=== PATIENT | male | born 1980 | race Caucasian/White ===

== ENCOUNTER 2025-04-23 02:06 | Emergency (ER) | payer BC, SELFPAY ==
[2025-04-23 02:08] VITALS: BMI 23.7
[2025-04-23 02:11] VITALS: BP 134/85; PULSE 64; RESP 19; TEMP 36.6; O2SAT 98
--- NOTE | 2025-04-23 02:18 | XR_ITS ---
Examination: CT abdomen and pelvis without contrast. Coronal 3-D reconstructions. Sagittal 2-D reconstructions. Date and time of exam: April 23, 2025, 0310 hours, comparison March 30, 2017 INDICATIONS: Right-sided flank pain beginning 2 hours ago, history of kidney stones CTDI: vol (mGy): 6.38 DLP: (mGycm): 378 Technique: Axial images of the abdomen have been obtained, 3 mm slice thickness Intravenous contrast material has not been administered. Low dose protocols were performed. One or more of the following dose reduction techniques were used; automated exposure control, adjustment of the mA and/or KV according to patient size, use of iterative reconstruction technique. Findings: No focal liver or splenic lesions No gallstones No pancreatic mass 20 mm indeterminate right adrenal nodule Mild right hydronephrosis, 4 mm calculus proximal right ureter Aorta normal size Normal appendix Contracted urinary bladder, no bladder mass or bladder calculi IMPRESSION: Mild right hydronephrosis, 4 mm proximal right ureteral calculus Indeterminate 20 mm right adrenal nodule, consider elective MRI abdomen adrenal glands follow-up pre and postcontrast
--- NOTE | 2025-04-23 02:18 | PD.EDRME ---
Rapid Medical Screening Exam RME Arrival date/time: 04/23/25 02:06 45M with history of kidney stones presents to ED with sudden R flank pain and N/V. Chief Complaint: Abdominal Pain Vital signs: Vital Signs Temperature 97.9 F 04/23/25 02:11 Pulse Rate 64 04/23/25 02:11 Respiratory Rate 19 04/23/25 02:11 Blood Pressure 134/85 H 04/23/25 02:11 Pulse Oximetry (%) 98 04/23/25 02:11 Exam: CVA tenderness Clinical Impression: kidney stone vs pyelo/UTI vs appy vs torsion vs drug use
[2025-04-23] MEDS: KETOROLAC INJ 30 MG/ML VIAL IVP ×2 (02:40→04:56)
[2025-04-23] MEDS: ONDANSETRON INJ 2 MG/ML INJ 2 ML 4 MG IVP (02:40)
[2025-04-23] MEDS: SODIUM CHLORIDE 0.9% 1000 ML 1,000 ML 999 ML IV (02:41)
--- NOTE | 2025-04-23 03:00 | EDNOTE_ITS ---
ED Abdominal Pain RME/HPI General Chief Complaint: Abdominal Pain Stated complaint: RIGHT FLANK PAIN Time seen by provider: 04/23/25 02:43 Arrival date/time: 04/23/25 02:06 RME / HPI RME / HPI narrative: 04/23/25 02:06 CC: Right back pain, kidney stones before Patient is a 45-year-old male with a past medical history of previous kidney stones (previous 5 mm) who presented to the emergency room via private vehicle with chief complain of right flank that woke him up from sleep at 11:00 PM on 04/22/2025. Previous history of stones that was about 5 mm in diameter which passed on its own previously. Some nausea and vomiting at home. Denied any blood in emesis. Denied hematuria. Denied hematochezia. No sick contacts. No diarrhea. No fever or chills. at home. Exam: CVA tenderness Impression: kidney stone vs pyelo/UTI vs appy vs torsion vs drug use Related Data Previous Rx's ?Medication ?Instructions ?Recorded ibuprofen 600 mg tablet 600 mg PO Q8H PRN fever or p ain 10 04/23/25 days #30 tabs Allergies Allergy/AdvReac Type Severity Reaction Status Date / Time No Known Allergies Allergy Verified 04/23/25 02:07 Review of Systems Review of Systems Narrative Review of Systems: General appearance: NO weight change, NO fatigue, NO weakness, NO fever, NO chills, NO night sweats, No cough Skin: NO rash, NO itching, NO sores, NO moles HEENT: NO Trauma, NO nausea, NO vomiting, NO visual changes, NO blurry vision, NO double vision, NO tinnitus, NO vertigo, NO ear discharge, NO rhinorrhea, NO stuffiness, NO sneezing, NO allergy, NO epistaxis. NO Hoarseness, NO sore throat, NO swollen neck. Cardiac: NO Palpitations, NO dyspnea on exertion, NO orthopnea, NO paroxysmal nocturnal dyspnea, NO edema Respiratory: NO Shortness of Breath, NO Wheezing, NO Cough, NO Sputum, NO hemoptysis GI:NO appetite, NO nausea, NO vomiting, NO dysphagia, NO changes in bowel frequency, NO stool color, NO diarrhea, NO constipation, NO hemetemesis, NO hemorrhoids, NO melena, NO hematechezia, NO abdominal pain, NO jaundice Renal: NO frequency, NO hesitancy, NO urgency, NO hematuria, NO nocturia, NO incontinence, Flank Pain MSK: NO muscle weakness, NO gout, NO arthritis, NO muscle stiffness Neuro: NO headaches, NO tremors, NO weakness, NO paralysis, NO seizures, NO loss of consciousness, NO numbness. Hem: NO anemia, NO easy bruising/bleeding, NO petechiae, NO purpura Endo: NO heat/cold intolerance, NO excessive sweating, NO polyuria, NO polydipsia, NO polyphagia, NO thyroid problems, NO diabetes Pysch: NO mood, NO anxiety, NO depression ED Exam Narrative Physical exam: General Appearance: Alert & Oriented X3, well-nourished male who is lying in bed in mild distress, secondary to CVA tenderness. HEENT: Skull symmetrical and atraumatic. Conjunctivae pin and moist. Pupils equal, round, reactive to light and accommodation (PERRL). External ear without lesion or discharge. Straight, nares patient, mucosa pink, no discharge. Cardio: Normal Rate and Rhythm with S1 and S2 heart sounds. No murmurs or extra heart sounds auscultated. No bruits on carotid auscultation. No peripheral edema or cyanosis. Lungs: Symmetric with good expansion. Chest and back non-tender. Breath sounds vesicular without crackles, wheezing or rhonchi Abdomen: no abdominal tenderness, Non-distended, Normal Reactive Bowel Sounds, tenderness to flank on palpation Neuro: Alert, cooperative, oriented to person, place, and time. Speech clear. CN grossly intact. Upper motor strength 5/5 and Lower motor strength 5/5. Sensation intact. Course Quality Measures none Orders Category Date Time Status Insert IV NOW Care 04/23/25 02:[address] abdomen pelvis wo con Stat Exams 04/23/25 02:18 Taken Alcohol, Blood Medical Stat Lab 04/23/25 02:50 Completed CBC Stat Lab 04/23/25 02:50 Completed CMP [Comprehensive Metabolic Panel] Stat Lab 04/23/25 02:50 Completed Drug Screen,Urine Stat Lab 04/23/25 03:45 Completed Lipase Stat Lab 04/23/25 02:50 Completed Urinalysis, C/S if Indicated Stat Lab 04/23/25 03:45 Completed Ketorolac Inj [Toradol Inj] Med 04/23/25 02:18 Discontinued 30 mg IVP X1 ONE Ketorolac Inj [Toradol Inj] Med 04/23/25 04:44 Discontinued 30 mg IVP X1 ONE Morphine* Inj Med 04/23/25 04:01 Discontinued 2 mg IVP X1 ONE Morphine* Inj Med 04/23/25 02:58 Discontinued 2 mg IVP X1 PRN Ondansetron Inj [Zofran Inj] Med 04/23/25 02:18 Discontinued 4 mg IVP X1 ONE Sodium Chloride 0.9% 1000 ml [Ns] 1,000 ml Med 04/23/25 02:18 Discontinued IV 999 mls/hr Tamsulosin HCl [Flomax] Med 04/23/25 04:02 Discontinued 0.4 mg PO X1 ONE Vital Signs Vital signs: Vital Signs Temperature 97.9 F 04/23/25 02:11 Pulse Rate 64 04/23/25 02:11 Respiratory Rate 19 04/23/25 02:11 Blood Pressure 134/85 H 04/23/25 02:11 Pulse Oximetry (%) 98 04/23/25 02:11 Abdominal Pain MDM Patient data External records reviewed:: [facility] previous records Clinical information provided by:: patient Social determinants that could affect healthcare access:: none Patient has the following chronic illnesses:: history of kidney stones How is presenting disease/condition affected by chronic disease/condition?: no chronic disease Evaluation data The following diagnostics were reviewed and interpreted by me:: lab results and radiology exam(s) Lab and/or radiology exams considered but not ordered:: None Interpretation Summary: Patient is a 45 year old male with a past medical history of previous calculi who presented with flank pain. No leukocytosis. CMP within trevin limits. UA negative for esterase and WBCs in urine. Utox positive THC. CT abdomen/Pelvis-3 mm obstructing calculus in the right proximal ureter causing mild hydroureteronephrosis. - The patient's plan was discussed with attending Dr. Edgardo Cordova MD PGY2 Internal Medicine Medications / Prescriptions Medications or Prescriptions considered but not ordered:: None Medication administrations:: Medication Administration History Discontinued Medications Sodium Chloride (Ns) 1,000 mls @ 999 mls/hr IV .Q1H1M ONE Stop: 04/23/25 03:18 Last Infusion: 04/23/25 03:52 Dose: Infused Documented By: [email or web address] Admin: 04/23/25 02:41 Dose: 999 mls/hr Documented By: HALINA Ketorolac Tromethamine (Ketorolac Inj 30 Mg/Ml Vial) 30 mg IVP X1 ONE Stop: 04/23/25 02:19 Last Admin: 04/23/25 02:40 Dose: 30 mg Documented By: HALINA Ketorolac Tromethamine (Ketorolac Inj 30 Mg/Ml Vial) 30 mg IVP X1 ONE Stop: 04/23/25 04:45 Last Admin: 04/23/25 04:56 Dose: 30 mg Documented By: HALINA Morphine Sulfate (Morphine Sulf Inj 4 Mg/Ml Vial) 2 mg IVP X1 PRN PRN Reason: Pain 7-10 Stop: 04/28/25 02:57 Morphine Sulfate (Morphine Sulf Inj 4 Mg/Ml Vial) 2 mg IVP X1 ONE Stop: 04/23/25 04:02 Last Admin: 04/23/25 04:08 Dose: 2 mg Documented By: HAILNA Ondansetron HCl (Ondansetron Inj 2 Mg/Ml Inj 2 Ml) 4 mg IVP X1 ONE; Protocol Stop: 04/23/25 02:19 Last Admin: 04/23/25 02:40 Dose: 4 mg Documented By: HALINA Tamsulosin HCl (Tamsulosin Hcl 0.4 Mg Capsule) 0.4 mg PO X1 ONE Stop: 04/23/25 04:03 Last Admin: 04/23/25 04:08 Dose: 0.4 mg Documented By: HALINA same as above Consultations Consultation(s) initiated? (list below): No Diagnosis Differential diagnosis abdominal pain: calculus of kidney, constipation and diverticulitis Most likely diagnosis given after review of the tests above:: Patient is a 45 year old male with a past medical history of previous calculi who presented with flank pain. No leukocytosis. CMP within trevin limits. UA negative for esterase and WBCs in urine. Utox positive THC. CT abdomen/Pelvis-3 mm obstructing calculus in the right proximal ureter causing mild hydroureteronephrosis, thus flank pain secondary to right calculi. - The patient's plan was discussed with attending Dr. Edgardo Cordova MD PGY2 Internal Medicine Admission Indicated Admission indicated?: not indicated Admission Request Was there a request for admission?: No Disposition Plan Disposition Plan: Discharge Discharge Attestation Discharge Attestation: The patient and all family members were given an opportunity to ask questions and understood the discharge instructions. Discharge instructions specifically effects, indications for sooner follow up or return to the emergency department, and the expected course of current diagnosis. Patient condition: Stable Discharge Plan Plan Patient Disposition: HOME (Self Care) Patient condition on transfer: Stable Health Concerns: Instructions: -Based on your images you have a stone in your right kidney. -Please stay hydrated to help your kidney stone pass. -Please take Ibuprofen 600 mg every 8 hours as needed for pain. Do not take more than 3,000 mg in a 24 hour period. -Please follow up with your primary care provider within one week of discharge -If your symptoms worsen,please seek immediate medical attention and return to your nearest emergency room -If you do not have a primary care provider, [facility] [address] [place] [address], Phone Prescriptions/Referrals Prescriptions/Med Rec: New ibuprofen 600 mg tablet 600 mg PO Q8H PRN (Reason: fever or pain) 10 Days Qty: 30 0RF Referrals: Ping Hanley MD [Primary Care Provider, Family Practice] - In 1 week Problem List Clinical Impression: Kidney calculi Patient/Caregiver Discharge Instructions Education Materials: ED Kidney Stone Undescended No ... Print Language: Faroese Stand Alone Forms: Brittnee Award Info., Patient Portal Info Letter
[2025-04-23 03:03] LABS: Basophils # (Auto) 0.1 Thou/mm3 (0.0-0.2); Basophils % (Auto) 1 % (0-2.5); Eosinophils # (Auto) 0.1 Thou/mm3 (0.0-0.5); Eosinophils % (Auto) 2 % (0-10); Hematocrit 45.5 % (41.0-53.0); Hemoglobin 15.7 g/dL (13.5-16.0); Immature Granulocytes Auto 0.02 Thou/mm3 (0.00-0.00); Lymphocytes # (Auto) 2.5 Thou/mm3 (1.0-4.8); Lymphocytes % (Auto) 31 % (10-50); Mean Corpuscular HGB Conc 34.5 g/dl (31.0-37.0); Mean Corpuscular Hemoglobin 28.8 pg (25.0-35.0); Mean Corpuscular Volume 84 fL (80-100); Monocytes # (Auto) 0.8 Thou/mm3 (0.0-0.8); Monocytes % (Auto) 10 % (0-12); Neutrophils # (Auto) 4.5 Thou/mm3 (1.8-7.7); Neutrophils % (Auto) 57 % (37-80); Nucleated Red Blood Cell # 0.00 Thou/mm3 (0.00-0.00); Nucleated Red Blood Cell % 0 /100 WBC (0); Platelet Count 366 Thou/mm3 (140-440); RDW Standard Deviation 39.1 fL (35.1-43.9); Red Blood Count 5.45 Miln/mm3 (4.50-5.90); White Blood Count 8.1 Thou/mm3 (3.8-10.6)
[2025-04-23 03:32] LABS: Alanine Aminotransferase 16 U/L (10-49); Albumin, Serum 4.5 gm/dL (3.5-5.0); Albumin/Globulin Ratio 1.7 (1.2-2.2); Alcohol, Blood Medical < 3.0 mg/dL (0-10.0); Alkaline Phosphatase 76 U/L (46-116); Anion Gap 9 (7-16); Aspartate Amino Transferase 17 U/L (0-34); BUN/Creatinine Ratio 10 Ratio (12-20); Bilirubin,Total 0.5 mg/dL (0.3-1.2); Blood Urea Nitrogen 10 mg/dL (9-23); Calcium 9.9 mg/dL (8.3-10.6); Calcium (Corrected) 9.9 mg/dL (8.5-10.1); Carbon Dioxide 27.9 mMol/L (20.0-31.0); Chloride 105 mMol/L (98-107); Creatinine (Component) 1.0 mg/dL (0.6-1.3); Estimated Creatinine Clearance 103.5 mL/min (>60); Globulin 2.7 gm/dL (2.3-3.5); Glucose 99 mg/dL (74-106); Lipase 49 U/L (12-53); Osmolality,Calculated 282 (275-295); Potassium 3.9 mMol/L (3.4-5.1); Sodium 142 mMol/L (136-145); Total Protein 7.2 gm/dL (5.7-8.2); eGFR > 60 See Note
--- NOTE | 2025-04-23 03:52 | PRELIM_ITS ---
CT scan of the abdomen and pelvis without intravenous contrast (axial sections with sagittal and coronal reformats) April 23, 2025 0310 hours Clinical History: R Flank pain Comparison: No prior study is available for comparison. Findings: The lung bases are clear. There is mild a thickening of the stomach. There is a 3 mm obstructing calculus in the right proximal ureter causing mild hydroureteronephrosis and periureteric/perinephric fat stranding. There is a hypodense nodule (HU 22) in the right adrenal, measuring 2 cm. The liver, gallbladder, pancreas, spleen, left kidney and left adrenal are unremarkable on this noncontrast study. No evidence of bowel obstruction. The appendix is within normal limits (coronal images 60-80/145). There is no mesenteric or retroperitoneal adenopathy. The urinary bladder is incompletely distended at the time of the examination and appears mildly thick walled. There is no free fluid or free air. The osseous structures are unremarkable. Impression: 3 mm obstructing calculus in the right proximal ureter causing mild hydroureteronephrosis. Indeterminate lesion in the right adrenal as described. Recommend follow up. Other findings as described above. Report Electronically Signed By: Harvey Rodriguez 04/23/2025 3:51:37 AM [EST]
[2025-04-23 03:56] VITALS: BP 130/77; PULSE 64; RESP 17; TEMP 36.7; O2SAT 99
[2025-04-23 03:57] LABS: Collection Type, Urine Clean Catch
[2025-04-23] MEDS: MORPHINE SULF INJ 4 MG/ML VIAL 2 MG IVP (04:08)
[2025-04-23] MEDS: TAMSULOSIN HCL 0.4 MG CAPSULE PO (04:08)
[2025-04-23 04:20] LABS: Amorphous Crystals,Urine Present (Absent); Bacteria,Urine Rare; Bilirubin,Urine Negative (Negative); Blood,Urine Trace (Negative); Clarity,Urine Clear (Clear/Hazy); Color,Urine Yellow (Lt Yel-Yel); Culture Indicated,Urine Not Indicated; Glucose, Urine Negative (Negative); Ketones,Urine Negative (Negative); Leukocyte Esterase,Urine Negative (Negative); Nitrite,Urine Negative (Negative); PH,Urine 6.0 (5.0-7.0); Protein,Urine 1+ (Neg - Trace); RBC,Urine 8 /hpf (0-3); Specific Gravity,Urine 1.031 (1.001-1.035); Squamous Epithelial Cell,Urine < 1 /hpf (0-5); Urobilinogen,Urine Negative mg/dL (0.0-1.0); WBC,Urine 2 /hpf (0-5)
[2025-04-23 04:23] LABS: Amphetamine/Methamp Scrn,U Negative (Negative); Barbiturate Screen,Urine Negative (Negative); Benzodiazepines Screen,Urine Negative (Negative); Benzoylecgonine Screen, Ur Negative (Negative); Fentanyl Screen,Urine Negative (Negative); Opiate Screen,Urine Negative (Negative); THC Screen,Urine Positive (Negative)
[2025-04-23 05:02] VITALS: BP 142/96; PULSE 62; O2SAT 98
== END 2025-04-23 05:03 | disposition home or self-care (01) ==
PROVIDERS: Physician Assistant; Emergency Provider Emergency Medicine; PCP Family Medicine
DX: N13.2 Hydronephrosis with renal and ureteral calculous obstruction (principal)
CPT/HCPCS: 36415; 74176; 80053; 80307; 80320; 81001; 83690; 85025; 96361; 96374; 96375; 96376; 99284; J1885; J2270; J2405; J7030; A9270; G0480

== ENCOUNTER 2025-04-27 07:48 | Emergency (ER) | payer BC, SELFPAY ==
[2025-04-27 08:02] VITALS: BP 146/94; PULSE 63; RESP 16; TEMP 36.7; O2SAT 98; BMI 23.1
--- NOTE | 2025-04-27 08:15 | PC.NURSE ---
Pt. here from home to room 6, pt. states he has had right side flank pain since Friday, pt. states he has a kidney stone on the right side, pt. denies any vomiting, pt. states he is urinating a good amount. Pt. denies pain with urination, pt. states the pain is to his right flank. Pt. denies any blood in urine.
--- NOTE | 2025-04-27 08:21 | EDNOTE_ITS ---
<Statement entered by Nathaly Prado MD - 04/27/25 13:00> As co-signing physician, I evaluated the patient myself as well. I concur with the plan and care as documented by the resident physician ED Male Genitalurinary RME/HPI General Chief complaint: Urogenital-Male Stated complaint: R) KIDNEY PAIN Time Seen by Provider: 04/27/25 08:23 Arrival date/time: 04/27/25 07:48 RME / HPI RME / HPI Narrative: CC: flank pain Patient is a 45-year-old male with a limited past medical history of previous kidney stones close presented to the emergency room via private vehicle with a chief complaint of right-sided flank pain for the past 4 days patient has been unable to follow-up with primary care provider and does not have an appointment scheduled until mid May of this year. Patient recently discharged from the emergency room with a diagnosis of right 4 mm nephrolithiasis and mild right hydronephrosis that was discharged on pain management and advised to follow-up with PCP. Patient has returned to the emergency room after 4 days with a chief complaint of right flank pain that 10 out of 10. Denied pain with urination or hematuria. Denied fevers at home. Chills positive. Related Data Previous Rx's ?Medication ?Instructions ?Recorded ibuprofen 600 mg tablet 600 mg PO Q8H PRN fever or p ain 10 04/23/25 days #30 tabs hydrocodone 5 mg-acetaminophen 300 1 tab PO BID PRN pa in 7 days #14 04/27/25 mg tablet tabs tamsulosin 0.4 mg capsule 0.4 mg PO QDAY 7 days #7 cap s 04/27/25 Allergies Allergy/AdvReac Type Severity Reaction Status Date / Time No Known Allergies Allergy Verified 04/27/25 07:50 Review of Systems Review of Systems Narrative Review of Systems: General appearance: NO weight change, NO fatigue, NO weakness, NO fever, NO chills, NO night sweats, No cough Skin: NO rash, NO itching, NO sores, NO moles HEENT: NO Trauma, NO nausea, NO vomiting, NO visual changes, NO blurry vision, NO double vision, NO tinnitus, NO vertigo, NO ear discharge, NO rhinorrhea, NO stuffiness, NO sneezing, NO allergy, NO epistaxis. NO Hoarseness, NO sore throat, NO swollen neck. Cardiac: NO Palpitations, NO dyspnea on exertion, NO orthopnea, NO paroxysmal nocturnal dyspnea, NO edema Respiratory: NO Shortness of Breath, NO Wheezing, NO Cough, NO Sputum, NO hemoptysis GI:NO appetite, NO nausea, NO vomiting, NO dysphagia, NO changes in bowel frequency, NO stool color, NO diarrhea, NO constipation, NO hemetemesis, NO hemorrhoids, NO melena, NO hematechezia, NO abdominal pain, NO jaundice Renal: Yes Flank pain, NO frequency, NO hesitancy, NO urgency, NO hematuria, NO nocturia, NO incontinence MSK: NO muscle weakness, NO gout, NO arthritis, NO muscle stiffness Neuro: NO headaches, NO tremors, NO weakness, NO paralysis, NO seizures, NO loss of consciousness, NO numbness. Hem: NO anemia, NO easy bruising/bleeding, NO petechiae, NO purpura Endo: NO heat/cold intolerance, NO excessive sweating, NO polyuria, NO polydipsia, NO polyphagia, NO thyroid problems, NO diabetes Pysch: NO mood, NO anxiety, NO depression ED Exam Narrative Physical exam: General Appearance: Alert & Oriented X3, well-nourished male who is lying in bed in mild distress secondary Right sided CVA tenderness. HEENT: Skull symmetrical and atraumatic. Conjunctivae pink and moist. Pupils equal, round, reactive to light and accommodation (PERRL). External ear without lesion or discharge. Cardio: Normal Rate and Rhythm with S1 and S2 heart sounds. No murmurs or extra heart sounds auscultated. No bruits on carotid auscultation. No peripheral edema or cyanosis. Lungs: Symmetric with good expansion. Chest and back non-tender. Breath sounds vesicular without crackles, wheezing or rhonchi Abdomen: Non-tender, Non-distended, Normal Reactive Bowel Sounds Neuro: Alert, cooperative, oriented to person, place, and time. Speech clear. CN grossly intact. Upper motor strength 5/5 and Lower motor strength 5/5. Sensation intact. Course Quality Measures none Orders Category Date Time Status CBC [CBC] Stat Lab 04/27/25 08:59 Completed CMP [Comprehensive Metabolic Panel] Stat Lab 04/27/25 08:59 Completed Urinalysis, C/S if Indicated Stat Lab 04/27/25 09:23 Completed HYDROcodone*/APAP 5/325 [[place] 5/325] Med 04/27/25 08:18 Discontinued 1 tab PO X1 ONE Ondansetron Odt [Zofran Odt] Med 04/27/25 08:20 Discontinued 4 mg PO X1 ONE Ringers Lactated 1000 ml [Lactated Ringers] 1,000 ml Med 04/27/25 09:45 Active IV 999 mls/hr Tamsulosin HCl [Flomax] Med 04/27/25 08:18 Discontinued 0.4 mg PO X1 ONE Vital Signs Vital signs: Vital Signs Temperature 98.0 F 04/27/25 08:02 Pulse Rate 63 04/27/25 08:02 Respiratory Rate 16 04/27/25 08:02 Blood Pressure 146/94 H 04/27/25 08:02 Pulse Oximetry (%) 98 04/27/25 08:02 Oxygen Delivery Method Room Air 04/27/25 08:02 Urogenital - Male Patient data External records reviewed:: [facility] previous records Clinical information provided by:: patient Social determinants that could affect healthcare access:: none Patient has the following chronic illnesses:: None How is presenting disease/condition affected by chronic disease/condition?: no chronic disease Evaluation data The following diagnostics were reviewed and interpreted by me:: lab results Lab and/or radiology exams considered but not ordered:: None Interpretation Summary: Patient is a 45-year-old male with a limited past medical history who presented to the emergency room presented with a chief complaint of a right flank pain secondary to right 4 mm proximal ureter kidney stone that was noted on previous ER admission. Patient complaining of pain at 10 out of 10 unable to follow-up with his PCP. No leukocytosis noted. Sodium within normal limits and potassium within normal limits mild PATY noted on CMP from 1-1.5. UA negative for urinary tract infection. Pateint will be discharged on pain management and tamsulosin. Medications / Prescriptions Medications or Prescriptions considered but not ordered:: None Medication administrations:: Medication Administration History Lactated Ringer's (Lactated Ringers) 1,000 mls @ 999 mls/hr IV .Q1H1M ONE Stop: 04/27/25 10:45 Discontinued Medications Hydrocodone Bitart/Acetaminophen (Hydrocodone/Apap 5/325 Tablet) 1 tab PO X1 ONE Stop: 04/27/25 08:19 Last Admin: 04/27/25 08:39 Dose: 1 tab Documented By: ED Ondansetron HCl (Ondansetron Odt 4 Mg Tabrap) 4 mg PO X1 ONE; Protocol Stop: 04/27/25 08:21 Last Admin: 04/27/25 08:39 Dose: 4 mg Documented By: ED Tamsulosin HCl (Tamsulosin Hcl 0.4 Mg Capsule) 0.4 mg PO X1 ONE Stop: 04/27/25 08:19 Last Admin: 04/27/25 08:38 Dose: 0.4 mg Documented By: ED Same Consultations Consultation(s) initiated? (list below): No Diagnosis Urogenital Male Differential Diagnosis: urinary tract infection, urethritis and other (Nephrolithiasis ) Most likely diagnosis given after review of the tests above:: Patient is a 45-year-old male with a limited past medical history who presented to the emergency room presented with a chief complaint of a right flank pain secondary to right 4 mm proximal ureter kidney stone that was noted on previous ER admission. Patient complaining of pain at 10 out of 10 unable to follow-up with his PCP. No leukocytosis noted. Sodium within normal limits and potassium within normal limits mild PATY noted on CMP from 1-1.5. UA negative for urinary tract infection. Pateint will be discharged on pain management and tamsulosin. #R. Nephrolithiasis #Mild Hydronephrosis - The patient's plan was discussed with attending Dr. Johan Cordova MD PGY2 Internal Medicine Admission Indicated Admission indicated?: indicated Admission Request Was there a request for admission?: No Disposition Plan Disposition Plan: Discharge Discharge Attestation Discharge Attestation: The patient and all family members were given an opportunity to ask questions and understood the discharge instructions. Discharge instructions specifically effects, indications for sooner follow up or return to the emergency department, and the expected course of current diagnosis. Patient condition: Stable Discharge Plan Plan Patient Disposition: HOME (Self Care) Patient condition on transfer: Stable Health Concerns: Instructions: -You have been diagnosed with a stone in your right kidney. -Please take Tamsulosin 0.4 mg once daily for the next 7 days to help pass the stone. -Please take Hydrocodone-Acetaminophen 5-300 mg 1 tablet twice daily NEEDED FOR PAIN. Please do NOT combine with Tylenol. -If you notice worsening of symptoms such as fevers (100.4 F), worsening pain, or decrease urine output, please return to the ER. -Please follow up with your primary care provider within one week of discharge and obtain a referral for urology if needed. -If your symptoms worsen,please seek immediate medical attention and return to your nearest emergency room Prescriptions/Referrals Prescriptions/Med Rec: New tamsulosin 0.4 mg capsule 0.4 mg PO QDAY 7 Days Qty: 7 0RF hydrocodone-acetaminophen 5-300 mg tablet 1 tab PO BID MDD 2 tablets in 24 hour period PRN (Reason: pain) 7 Days Qty: 14 0RF Continued ibuprofen 600 mg tablet 600 mg PO Q8H PRN (Reason: fever or pain) 10 Days Qty: 30 0RF Referrals: Cristiano Hanley MD [Primary Care Provider, Family Practice] - In 1 week Problem List Clinical Impression: Nephrolithiasis Patient/Caregiver Discharge Instructions Education Materials: ED Kidney Stone Undescended No ... Print Language: Latvian Stand Alone Forms: Brittnee Award Info., Patient Portal Info Letter
[2025-04-27] MEDS: TAMSULOSIN HCL 0.4 MG CAPSULE PO (08:38)
[2025-04-27] MEDS: ONDANSETRON ODT 4 MG TABRAP PO (08:39)
[2025-04-27] MEDS: HYDROcodone/APAP 5/325 TABLET 1 TAB PO (08:39)
[2025-04-27 09:01] LABS: Basophils # (Auto) 0.1 Thou/mm3 (0.0-0.2); Basophils % (Auto) 1 % (0-2.5); Eosinophils # (Auto) 0.1 Thou/mm3 (0.0-0.5); Eosinophils % (Auto) 1 % (0-10); Hematocrit 38.7 % (41.0-53.0); Hemoglobin 13.2 g/dL (13.5-16.0); Immature Granulocytes Auto 0.03 Thou/mm3 (0.00-0.00); Lymphocytes # (Auto) 1.2 Thou/mm3 (1.0-4.8); Lymphocytes % (Auto) 12 % (10-50); Mean Corpuscular HGB Conc 34.1 g/dl (31.0-37.0); Mean Corpuscular Hemoglobin 28.6 pg (25.0-35.0); Mean Corpuscular Volume 84 fL (80-100); Monocytes # (Auto) 0.8 Thou/mm3 (0.0-0.8); Monocytes % (Auto) 8 % (0-12); Neutrophils # (Auto) 7.6 Thou/mm3 (1.8-7.7); Neutrophils % (Auto) 78 % (37-80); Nucleated Red Blood Cell # 0.00 Thou/mm3 (0.00-0.00); Nucleated Red Blood Cell % 0 /100 WBC (0); Platelet Count 260 Thou/mm3 (140-440); RDW Standard Deviation 39.9 fL (35.1-43.9); Red Blood Count 4.61 Miln/mm3 (4.50-5.90); White Blood Count 9.7 Thou/mm3 (3.8-10.6)
[2025-04-27 09:21] LABS: Alanine Aminotransferase 10 U/L (10-49); Albumin, Serum 4.1 gm/dL (3.5-5.0); Albumin/Globulin Ratio 2.2 (1.2-2.2); Alkaline Phosphatase 71 U/L (46-116); Anion Gap 6 (7-16); Aspartate Amino Transferase 15 U/L (0-34); BUN/Creatinine Ratio 9 Ratio (12-20); Bilirubin,Total 0.4 mg/dL (0.3-1.2); Blood Urea Nitrogen 14 mg/dL (9-23); Calcium 8.7 mg/dL (8.3-10.6); Calcium (Corrected) 8.7 mg/dL (8.5-10.1); Carbon Dioxide 28.1 mMol/L (20.0-31.0); Chloride 106 mMol/L (98-107); Creatinine (Component) 1.5 mg/dL (0.6-1.3); Estimated Creatinine Clearance 70.6 mL/min (>60); Globulin 1.9 gm/dL (2.3-3.5); Glucose 95 mg/dL (74-106); Osmolality,Calculated 279 (275-295); Potassium 4.6 mMol/L (3.4-5.1); Sodium 140 mMol/L (136-145); Total Protein 6.0 gm/dL (5.7-8.2); eGFR 59 See Note
[2025-04-27 09:28] LABS: Collection Type, Urine Clean Catch; Squamous Epithelial Cell,Urine 0 /hpf (0-5)
[2025-04-27 09:34] LABS: Bilirubin,Urine Negative (Negative); Blood,Urine Negative (Negative); Clarity,Urine Clear (Clear/Hazy); Color,Urine Lt-Yellow (Lt Yel-Yel); Culture Indicated,Urine Not Indicated; Glucose, Urine Negative (Negative); Ketones,Urine Negative (Negative); Leukocyte Esterase,Urine Negative (Negative); Nitrite,Urine Negative (Negative); PH,Urine 6.0 (5.0-7.0); Protein,Urine Negative (Neg - Trace); RBC,Urine 2 /hpf (0-3); Specific Gravity,Urine 1.017 (1.001-1.035); Urobilinogen,Urine Negative mg/dL (0.0-1.0); WBC,Urine < 1 /hpf (0-5)
[2025-04-27 10:00] VITALS: BP 121/90; PULSE 52; RESP 25; TEMP 36.6; O2SAT 98
[2025-04-27] MEDS: RINGERS LACTATED 1000 ML 1,000 ML 999 ML IV (10:31)
[2025-04-27 11:55] VITALS: BP 126/90; PULSE 59; RESP 17; TEMP 36.6; O2SAT 98
== END 2025-04-27 11:55 | disposition home or self-care (01) ==
PROVIDERS: Emergency Provider Family Medicine; PCP Family Medicine
DX: N13.2 Hydronephrosis with renal and ureteral calculous obstruction (principal)
CPT/HCPCS: 36415; 80053; 81001; 85025; 99283; J7120; Q0162; A9270